=== PATIENT | male | born 1990 | race Caucasian/White ===

== ENCOUNTER → 2025-01-18 09:28 | Outpatient (BNVA) | payer OTHER, SELFPAY | PROVIDERS: Visit Provider Emergency Medicine | DX: S97.112A Crushing injury of left great toe, initial encounter (principal); W23.1XXA Caught, crushed, jammed, or pinched between stationary objects, initial encounter; Z02.79 Encounter for issue of other medical certificate | CPT/HCPCS: 99202 ==